=== PATIENT | male | born 1960 | race Caucasian/White ===

== ENCOUNTER 2019-04-13 11:48 | Day surgery (SDC) | payer BC ==
[~2019-04-13 11:48] MED LIST: ACETAMINOPHEN 1,000 MG/100 ML BTL IVPB ONE; CEFAZOLIN 1 Gram 1 GM/50 ML BAG IVPB ONE; CEFAZOLIN 2 Gram 2 GM/50 ML BAG IVPB ONE
[2019-04-13] MEDS ORDERED: DEXAMETHASONE 4 MG/ML 1ML VIAL IVP ONE (11:49)
[2019-04-13] MEDS ORDERED: EPHEDRINE SULFATE 50 MG/ML ML IV ONE (11:49)
[2019-04-13] MEDS ORDERED: LIDOCAINE 2% MDV (20MG/ML) 20ML VIAL IV ONE (11:49)
[2019-04-13] MEDS ORDERED: KETOROLAC 30 MG/ML VIAL IVP ONE (11:49)
[2019-04-13] MEDS ORDERED: SEVOFLURANE 250 ML INH ONE (11:49)
[2019-04-13] MEDS ORDERED: PROPOFOL 10 MG/ML VIAL IV ONE (11:49)
[2019-04-13] MEDS ORDERED: FENTANYL PF 100MCG/2ML VIAL IV ONE (11:49)
[2019-04-13] MEDS ORDERED: MIDAZOLAM HCL 2MG/2ML VIAL IV ONE (11:49)
[2019-04-13] MEDS ORDERED: RINGERS SOLUTION,LACTATED 1,000 ML IV ONE ×2 (12:55→14:59)
[2019-04-13] MEDS ORDERED: BUPIVACAINE 0.5% W/EPI MPF 30 ML VIAL SQ ONE (14:45)
[2019-04-13] MEDS ORDERED: BUPIVACAINE LIPOSOME/PF 133MG/10ML VIAL IU ONE (14:45)
[2019-04-13] MEDS ORDERED: METHYLPREDNISOLONE 40MG/VIAL IU ONE (14:45)
--- NOTE | 2019-04-14 08:30 | Operative Note ---
DATE OF SURGERY: 04/13/2019 PREOPERATIVE DIAGNOSIS: LEFT KNEE MEDIAL MENISCUS TEAR AND ARTHROSIS. POSTOPERATIVE DIAGNOSIS: LEFT KNEE MEDIAL MENISCUS TEAR AND ARTHROSIS. OPERATION: 1. DIAGNOSTIC ARTHROSCOPY. 2. ARTHROSCOPIC PARTIAL POSTERIOR MIDDLE HORN MEDIAL MENISCECTOMY. 3. ARTHROSCOPIC DEBRIDEMENT CHONDROPLASTY MEDIAL FEMORAL CONDYLE. SURGEON: Thomas Nunes M.D. ANESTHESIA: LMA ANESTHESIA PROVIDER: Melissa Carranza CRNA COMPLICATIONS: None. BLOOD LOSS: Minimal. 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 INDICATIONS FOR OPERATION: This is a 58-year-old male who has had persistent pain, mechanical symptoms, catching, and snapping of his knee for several years. He has had previous arthroscopic surgery. By symptoms and exam he was diagnosed with a meniscus tear and arthrosis. He had 50% joint space narrowing on the standing and weight bearing views and he wished to proceed with arthroscopic surgery. I explained the risks and benefits in detail for the diagnosis and procedure including, but not limited to infection, nerve injury, vessel injury, persistent pain, stiffness, numbness, or tingling in the knee, the fact that he has arthrosis of the knee, and the procedure will not cure that condition, he could require further procedures. All of his questions were answered. Rehab course was outlined. He agreed to proceed. PROCEDURE: The patient was brought to the Operating Room, placed in the supine position, and prepped for surgery. Anesthesia was induced. The left lower extremity and knee were prepped and draped in sterile fashion. The left knee was prepped again with ChloraPrep after it was draped. Intraoperative timeout was performed. Next standard supine, lateral and inferior portals were establish. The inferior medial and lateral ports were established. Diagnostic arthroscopy was performed. The suprapatellar pouch was normal. The medial gutter had some synovitis, otherwise normal. The medial compartment revealed complex tear of the middle and posterior horns of the medial meniscus. We used a combination of shaver and basket cutters, removed and approximately 80% of the meniscus that contoured with the middle horn to a smooth stable surface with biters and natalie. 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 Next, the intercondylar notch was normal. The ACL and PCL were intact. The lateral compartment was completely normal. The meniscus was probed entirely and was normal. The cartilage was normal. The lateral gutter had some synovitis, otherwise normal. This completed our procedure. Scope equipment was removed. Scope incisions were covered with Xeroform gauze. Sterile dressing and Elton wrap. The patient tolerated the procedure well. No intraoperative complications. Sponge, needle, and blade counts correct. Recovery Room stable. Neurovascularly intact. He will be discharged as an outpatient. Follow-up in two weeks. JOB NUMBER: [id number] [facility]
== END 2019-04-13 15:45 | disposition home or self-care (01) ==
LOC: SUR 11:48
PROVIDERS: ATTEND Orthopaedic Surgery
DX: S83.207A Unspecified tear of unspecified meniscus, current injury, left knee, initial encounter (principal); I10 Essential (primary) hypertension; E78.00 Pure hypercholesterolemia, unspecified; G47.33 Obstructive sleep apnea (adult) (pediatric); F17.210 Nicotine dependence, cigarettes, uncomplicated
CPT/HCPCS: C9290; J1030; J1885; J7120